=== PATIENT | female | born 1980 | race Caucasian/White ===

== ENCOUNTER 2020-11-14 11:08 | Emergency (ER) | payer OTHER ==
[~2020-11-14] VITALS: Ht 170.2 cm; Wt 61.2 kg
[2020-11-14 11:09] VITALS: BP 126/109
[2020-11-14] MEDS ORDERED: HYDROXYZINE PAM25 M1 PO (12:17)
--- NOTE | 2020-11-15 08:21 | EKG ---
[place] [address] [facility] [place] [address] ELECTROCARDIOGRAM REPORT Name: LAZARO VERMA [facility]: [facility]OCKVenkatVenkat#: [id number] Admission: 11/14/20 Attend Phys: Discharge: 11/14/20 Date of : 78 Report #: [id number] [facility] ED Test Date: 2020-11-14 Test Time: 11:12:47 Pat Name: LAZARO VERMA Department: Room: Gender: F Shoe Caser: : 1980 Requested By: Isaias Parry Order Number: [id number] MD: Naeem Longo Measurements Intervals [place] Rate: 78 P: 82 HI: 141 QRS: 59 QRSD: 74 T: 54 QT: 368 QTc: 420 Interpretive Statements Sinus rhythm Normal tracing No previous ECG available for comparison Electronically Signed On 11-15-2020 8:20:57 CDT by Naeem Longo [email or web address] <ELECTRONICALLY SIGNED> By: Naeem Longo MD, [facility] 11/15/20 0820 1112 1112 Naeem Longo MD, FACC /EPI
== END 2020-11-14 12:41 | disposition home or self-care (01) ==
LOC: ER 11:08
DX: F14.90 Cocaine use, unspecified, uncomplicated (principal); F10.10 Alcohol abuse, uncomplicated; F41.9 Anxiety disorder, unspecified; Y90.9 Presence of alcohol in blood, level not specified